=== PATIENT | male | born 1955 | race Caucasian/White ===

== ENCOUNTER 2019-03-06 09:55 | Inpatient (IN) ==
[2019-03-06 10:34] LABS: Basophils % 0.3 %; Eosinophils # 0.1 K/mcL (0.0-0.6); Eosinophils % 0.5 %; Hematocrit 42.5 % (37.5-50.1); Hemoglobin 13.8 g/dL (12.9-16.9); Immature Granulocytes % 0.4 % (0-4); Lymphocytes # 1.1 K/mcL (0.6-4.6); Lymphocytes % 8.3 %; Mean Corpuscular HGB Conc 32.5 g/dL (31.6-35.5); Mean Corpuscular Hemoglobin 30.1 pg (28.0-33.3); Mean Corpuscular Volume 92.6 fL (83.0-100.0); Mean Platelet Volume 9.3 fL (9.4-12.4); Monocytes # 1.3 K/mcL (0.0-1.3); Monocytes % 9.7 %; Neutrophils # 10.9 K/mcL (1.6-8.9); Platelet Count 205 K/mcL (140-400); Red Blood Count 4.59 M/mcL (4.19-5.50); Segmented Neutrophils % 80.8 %
[2019-03-06 10:56] LABS: BUN/Creatinine Ratio 12 (6-26); Blood Urea Nitrogen 13 mg/dL (8-23); Calcium 9.2 mg/dL (8.6-10.3); Carbon Dioxide 30 mEq/L (23-29); Chloride 100 mEq/L (98-107); Glucose 125 mg/dL (70-105); Osmolality,Calculated 290 (280-300); Sodium 139 mEq/L (136-145); eGFR For Non-African Americans > 60 (> 60)
[2019-03-06 10:57] LABS: Troponin I < 0.03 ng/mL (< 0.04)
[2019-03-06 11:06] LABS: VBG HCO3 31 mEq/L (21-27); VBG PCO2 57 mmHg (41-51); VBG PH 7.35 pH Units (7.32-7.42); VBG PO2 96 mmHg (25-50)
[2019-03-06] MEDS ORDERED: methylPREDNISolone 125 MG/2 ML VIAL IVP ONE (11:25)
[2019-03-06] MEDS ORDERED: Ipratropium/Albuterol Neb 3 ML IH ONE (11:25)
[2019-03-06] MEDS ORDERED: Azithromycin 500 MG in D5% in Water 250 ML IVPB ONE (11:38)
[2019-03-06] MEDS ORDERED: Naloxone 0.4 MG/ML INJ IVP PRN (12:09)
--- NOTE | 2019-03-06 12:29 | Emergency Department Note ---
Disposition Clinical Impression: Acute exacerbation of chronic obstructive airways disease Disposition: Admitted As Inpatient Condition: Good Referrals: Quentin Rosen MD [Primary Care Provider] - Time of Disposition: 12:00 General Adult HPI - General Chief complaint: ED Shortness of Breath/Dyspnea Stated complaint: KELLY Source: patient Limitations: no limitations Nursing Notes Reviewed: Yes Vital Signs Reviewed: Yes - History of Present Illness HPI Narrative: 63-year-old gentleman with history of COPD and tobacco abuse presents for chief complaint of shortness of breath as in progressive over the last 4 or 5 days. He notes that his doctor started him on Zyrtec and Flonase a few days ago and recommended that he start Spiriva, he was not able to fill the Spiriva yet. His cough has been productive of yellowish and green sputum. He denies any fever or chills, nausea or vomiting, headache or confusion, chest pain. Symptoms are constant and progressive and worsen with exertion. He is not normally on oxygen at home except at night, but is using oxygen today due to his dyspnea. No GI or symptoms, rashes or edema. No recent travel, surgery, immobilization. No recent antibiotics or steroids. Pain Scale: 9 - Related Data Home Medications Medication Instructions Recorded Confirmed Albuterol Sulfate [Albuterol 2 puff IH Q4HR PRN 09/21/15 05/07/16 Inhaler] Alprazolam [Xanax] 1 mg PO QID 09/21/15 05/07/16 Atorvastatin Calcium [Lipitor] 80 mg PO DAILY 09/21/15 05/07/16 Calcium Carbonate/Vitamin D3 1 tab PO DAILY 09/21/15 05/07/16 [Calcium 500-Vit D3 400 Tablet] Furosemide [Lasix] 40 mg PO DAILY 09/21/15 05/07/16 GlipiZIDE XL (24 HR) [Glucotrol XL] 5 mg PO DAILY 09/21/15 05/07/16 Guaifenesin [Mucinex] 600 mg PO BID 09/21/15 05/07/16 Ipratropium/Albuterol Neb [Duoneb] 3 ml IH Q6HR 09/21/15 05/07/16 Losartan [Cozaar] 50 mg PO DAILY 09/21/15 05/07/16 Multivitamin/Ferrous Sulfate 1 tab PO DAILY 09/21/15 05/07/16 [One-Daily Idizt-Vwm-Plqo Tab] [place]-3S/Dha/Epa/Fish Oil [Fish 1,000 mg PO DAILY 09/21/15 05/07/16 Oil 1,200 mg Softgel] Pantoprazole Sodium [Protonix] 40 mg PO DAILY 09/21/15 05/07/16 Potassium Chloride [Klor-Con 10 meq PO DAILY 09/21/15 05/07/16 Sprinkle] Promethazine [Phenergan] 25 mg PO Q6HR PRN 09/21/15 05/07/16 Spironolactone [Aldactone] 25 mg PO BID 09/21/15 05/07/16 Tizanidine [Zanaflex] 4 mg PO BID 09/21/15 05/07/16 buPROPion HCl [Zyban] 150 mg PO BID 09/21/15 05/07/16 Docusate Sodium [Colace] 100 mg PO BID PRN 01/02/16 05/07/16 Oxygen 2 l NS HS PRN 01/02/16 05/07/16 Aspirin Enteric Coated [Aspirin EC] 81 mg PO DAILY 05/07/16 05/07/16 Beta-Carotene(A)-Vits C,E/Mins 1 cap PO DAILY 05/07/16 05/07/16 [Antioxidant Softgel] Colestipol HCl [Colestid] 2 gm PO DAILY 05/07/16 05/07/16 EPINEPHrine [Epipen] 0.3 mg IJ ONCE PRN 05/07/16 05/07/16 Lidocaine OINT 1 appl TP AD 05/07/16 05/07/16 Metoprolol XL (24 HR) Succ [Toprol 25 mg PO DAILY 05/07/16 05/07/16 XL] Mirtazapine [Remeron] 30 mg PO QPM 05/07/16 05/07/16 OxyCODONE/APAP 7.5/325 [Percocet 2 tab PO Q4HR PRN 05/07/16 05/07/16 7.5/325 MG] Previous Rx's Medication Instructions Recorded Doxycycline 100 mg PO BID #60 capsule 01/04/16 Nystatin POWDER [Nystop] 1 appl TP BID #30 gm 02/12/19 Allergies Allergy/AdvReac Type Severity Reaction Status Date / Time AMBIKA Inhibitors Allergy See Verified 07/12/15 08:01 Comments acetaminophen [From Vicodin] Allergy Itching Verified 09/26/15 07:26 codeine Allergy Hives Verified 07/12/15 07:46 Diclofenac Allergy Itching Verified 09/26/15 07:26 hydrocodone [From Vicodin] Allergy Itching Verified 07/12/15 08:01 misoprostol Allergy See Verified 07/12/15 08:01 Comments ofloxacin Allergy REDNESS Verified 09/26/15 07:26 SWELLING Penicillins Allergy SWELLING Verified 09/26/15 07:26 Quinolones Allergy See Verified 07/12/15 08:01 Comments Sulfa (Sulfonamide Allergy Itching Verified 07/12/15 07:46 Antibiotics) trimethoprim Allergy See Verified 07/12/15 08:01 Comments metronidazole [From Flagyl] AdvReac burning Verified 09/26/15 07:26 sensation via iv All systems ED: reviewed and negative except as stated. Past Medical History - Past Medical History Attestation: Yes The following information was validated with the patient. Source: nursing notes reviewed Medical history: Reports: aortic aneurysm, arthritis, CHF, COPD, coronary artery disease, diabetes, GERD, hepatitis, hyperlipidemia, hypertension, kidney stones, renal disease, other Surgical history: Reports: cholecystectomy, orthopedic, other Psychiatric history: Reports: anxiety - Social History Smoking Status: Current every day smoker Smokeless Tobacco Status: No Alcohol use: Reports: none Drug use: Reports: none Physical Exam - General Limitations: no limitations General appearance: alert, in no apparent distress - Head Head exam: atraumatic, normocephalic - Eye Eye exam: Present: normal appearance, PERRL, EOMI - ENT ENT exam: normal exam, normal oropharynx, mucous membranes moist - Neck Neck exam: Present: normal inspection, full ROM, trachea midline - Chest Chest inspection: Present: normal inspection, symmetric chest wall rise - Respiratory Respiratory exam: Present: wheezes, other (Diminished diffusely.) - Cardiovascular Cardiovascular exam: Present: regular rate, normal rhythm, normal heart sounds - Abdominal Exam Abdominal exam: Present: soft, Non-Tender. Absent: tenderness, distention, guarding, rebound, rigidity - Extremities Exam Extremities exam: Present: normal inspection. Absent: pedal edema - Back Exam Back exam: Present: normal inspection - Neurological Exam Neurological exam: Present: alert, oriented X3 - Psychiatric Psychiatric exam: Present: normal affect, normal mood - Skin Skin exam: Present: warm, dry Course Course Narrative: Patient with some wheezing and tight lungs on arrival. He has productive cough on my assessment. No pneumonia on chest x-ray. Minimal CO2 retention on VBG. He is not acidotic. He is requiring 3 L of oxygen by nasal cannula. He is feeling a little better after DuoNeb treatments in the emergency department. He was also given Solu-Medrol and azithromycin. Patient admitted for further evaluation and management of his COPD flare. Vital Signs Temperature 98.8 F 03/06/19 09:57 Pulse Rate 103 03/06/19 09:57 Respiratory Rate 22 03/06/19 09:57 Blood Pressure 162/69 03/06/19 09:57 O2 Sat by Pulse Oximetry 87 03/06/19 09:57 Temperature 98.8 F 03/06/19 09:57 Pulse Rate 79 03/06/19 12:18 Respiratory Rate 18 03/06/19 12:18 Blood Pressure 135/59 03/06/19 12:18 O2 Sat by Pulse Oximetry 92 03/06/19 12:18 Oxygen Delivery Oxygen Delivery Nasal Cannula Medical Decision Making - Lab Data Result diagrams: 03/06/19 10:19 03/06/19 10:19 Lab Results 03/06/19 03/06/19 03/06/19 Range/Units 10:19 10:19 10:19 WBC 13.4 H (4.3-11.1) K/mcL RBC 4.59 (4.19-5.50) M/mcL Hgb 13.8 (12.9-16.9) g/dL Hct 42.5 (37.5-50.1) % MCV 92.6 (83.0-100.0) fL MCH 30.1 (28.0-33.3) pg MCHC 32.5 (31.6-35.5) g/dL RDW 12.0 (11.5-14.5) % Plt Count 205 (140-400) K/mcL MPV 9.3 L (9.4-12.4) fL Immature Gran % 0.4 (0-4) % Seg Neutrophils % 80.8 % Lymphocytes % 8.3 % Monocytes % 9.7 % Eosinophils % 0.5 % Basophils % 0.3 % Neutrophils # 10.9 H (1.6-8.9) K/mcL Lymphocytes # 1.1 (0.6-4.6) K/mcL Monocytes # 1.3 (0.0-1.3) K/mcL Eosinophils # 0.1 (0.0-0.6) K/mcL Basophils # 0.0 (0.0-0.2) K/mcL VBG pH (7.32-7.42) pH Units VBG pCO2 (41-51) mmHg VBG pO2 (25-50) mmHg VBG HCO3 (21-27) mEq/L Sodium 139 (136-145) mEq/L Potassium 4.0 (3.5-5.1) mEq/L Chloride 100 (98-107) mEq/L Carbon Dioxide 30 H (23-29) mEq/L BUN 13 (8-23) mg/dL Creatinine 1.06 (0.70-1.30) mg/dL Est GFR ( Amer) > 60 (> 60) Est GFR (Non-Af Amer) > 60 (> 60) BUN/Creatinine Ratio 12 (6-26) Glucose 125 H (70-105) mg/dL Calculated Osmolality 290 (280-300) Lactic Acid 0.9 (0.5-2.2) mmol/L Calcium 9.2 (8.6-10.3) mg/dL Troponin I < 0.03 (< 0.04) ng/mL B-Natriuretic Peptide (Less than 100) pg/mL 03/06/19 03/06/19 Range/Units 10:19 11:03 WBC (4.3-11.1) K/mcL RBC (4.19-5.50) M/mcL Hgb (12.9-16.9) g/dL Hct (37.5-50.1) % MCV (83.0-100.0) fL MCH (28.0-33.3) pg MCHC (31.6-35.5) g/dL RDW (11.5-14.5) % Plt Count (140-400) K/mcL MPV (9.4-12.4) fL Immature Gran % (0-4) % Seg Neutrophils % % Lymphocytes % % Monocytes % % Eosinophils % % Basophils % % Neutrophils # (1.6-8.9) K/mcL Lymphocytes # (0.6-4.6) K/mcL Monocytes # (0.0-1.3) K/mcL Eosinophils # (0.0-0.6) K/mcL Basophils # (0.0-0.2) K/mcL VBG pH 7.35 (7.32-7.42) pH Units VBG pCO2 57 H (41-51) mmHg VBG pO2 96 H (25-50) mmHg VBG HCO3 31 H (21-27) mEq/L Sodium (136-145) mEq/L Potassium (3.5-5.1) mEq/L Chloride (98-107) mEq/L Carbon Dioxide (23-29) mEq/L BUN (8-23) mg/dL Creatinine (0.70-1.30) mg/dL Est GFR ( Amer) (> 60) Est GFR (Non-Af Amer) (> 60) BUN/Creatinine Ratio (6-26) Glucose (70-105) mg/dL Calculated Osmolality (280-300) Lactic Acid (0.5-2.2) mmol/L Calcium (8.6-10.3) mg/dL Troponin I (< 0.04) ng/mL B-Natriuretic Peptide 47 (Less than 100) pg/mL
--- NOTE | 2019-03-06 12:30 | Internal Med History&Physical ---
Date of Encounter: 03/06/19 Time of Encounter: 12:27 Internal Medicine - H&P: HPI Chief complaint: SOB Admitted From: Home Plans for Post Hospital Care: Home History of present illness: Mr. Winchester is a 63 year old male with history COPD on home oxygen, obesity on CPAP and CHF presented to [facility] with complaint of SOB.as per patient his SOB started about one week ago and is progressively worsening. SOB is present both at rest and on ambulation. Associated with wheezing, and cough with productive yellow sputum he makes about half a cup a day sputum, denies blood. He denies leg swelling, PND or orthopnea. He is been compliant with his CPAP. He has used his home nebulizers without relief. Ambulation aggravates his symptoms and rest alleviates them somewhat. He saw his primary care physician for similar symptoms and was prescribed 2 new inhalers however when he went to go fill it at the pharmacy they did not have the inhalers. He also endorses history of heart failure and is on multiple medications however denies any other cardiac history, has never had any stents placed. He is up-to-date with his vaccinations, denies sick contacts or recent antibiotic use. He denies fever, chills, nausea, vomiting, diarrhea, chest pain, palpitations, headache, syncope, or recent falls while in [facility] he was give steroids nadnebs for COPD exacerbation with improvement and was endorsed for admission has take n all Am medications take oxycodone 7.5 mg 2 tablets Q4H for chronic pain Past Med Surg Social Fam HX - Past Medical History Medical history: aortic aneurysm, arthritis, CHF, COPD, coronary artery disease, diabetes, GERD, hepatitis, hyperlipidemia, hypertension, kidney stones, renal disease, other Additional medical history: AAA. renal artery stent Psychiatric history: anxiety - Past Surgical History Surgical History: cholecystectomy, orthopedic, other Additional surgical history: renal artery stent. AAA - Social History Smoking Status: Current every day smoker Smokeless Tobacco Status: No Alcohol use: none Drug use: none - Family History Mother Living Status: Hx Family Cardiac Disorders: Yes Hx Family Respiratory Disorders: Yes Hx Family Endocrine Disorder: Yes Father Living Status: Hx Family Cardiac Disorders: Yes Hx Family Respiratory Disorders: Yes Hx Family Endocrine Disorder: Yes Brother Living Status: Hx Family Cardiac Disorders: Yes Internal Medicine - H&P: Meds Albuterol Sulfate [Albuterol Inhaler] 2 puff IH Q4HR PRN 09/21/15 [History] Alprazolam [Xanax] 1 mg PO QID 09/21/15 [History] Atorvastatin Calcium [Lipitor] 80 mg PO DAILY 09/21/15 [History] Calcium Carbonate/Vitamin D3 [Calcium 500-Vit D3 400 Tablet] 1 tab PO DAILY 09/21/15 [History] Furosemide [Lasix] 40 mg PO DAILY 09/21/15 [History] GlipiZIDE XL (24 HR) [Glucotrol XL] 5 mg PO DAILY 09/21/15 [History] Guaifenesin [Mucinex] 600 mg PO BID 09/21/15 [History] Ipratropium/Albuterol Neb [Duoneb] 3 ml IH Q6HR 09/21/15 [History] Losartan [Cozaar] 50 mg PO DAILY 09/21/15 [History] Multivitamin/Ferrous Sulfate [One-Daily Hxpsr-Hnj-Zvpx Tab] 1 tab PO DAILY 09/21/15 [History] [place]-3S/Dha/Epa/Fish Oil [Fish Oil 1,200 mg Softgel] 1,000 mg PO DAILY 09/21/15 [History] Pantoprazole Sodium [Protonix] 40 mg PO DAILY 09/21/15 [History] Potassium Chloride [Klor-Con Sprinkle] 10 meq PO DAILY 09/21/15 [History] Promethazine [Phenergan] 25 mg PO Q6HR PRN 09/21/15 [History] Spironolactone [Aldactone] 25 mg PO BID 09/21/15 [History] Tizanidine [Zanaflex] 4 mg PO BID 09/21/15 [History] buPROPion HCl [Zyban] 150 mg PO BID 09/21/15 [History] Docusate Sodium [Colace] 100 mg PO BID PRN 01/02/16 [History] Oxygen 2 l NS HS PRN 01/02/16 [History] Doxycycline 100 mg PO BID #60 capsule 01/04/16 [Rx] Aspirin Enteric Coated [Aspirin EC] 81 mg PO DAILY 05/07/16 [History] Beta-Carotene(A)-Vits C,E/Mins [Antioxidant Softgel] 1 cap PO DAILY 05/07/16 [History] Colestipol HCl [Colestid] 2 gm PO DAILY 05/07/16 [History] EPINEPHrine [Epipen] 0.3 mg IJ ONCE PRN 05/07/16 [History] Lidocaine OINT 1 appl TP AD 05/07/16 [History] Metoprolol XL (24 HR) Succ [Toprol XL] 25 mg PO DAILY 05/07/16 [History] Mirtazapine [Remeron] 30 mg PO QPM 05/07/16 [History] OxyCODONE/APAP 7.5/325 [Percocet 7.5/325 MG] 2 tab PO Q4HR PRN 05/07/16 [History] Nystatin POWDER [Nystop] 1 appl TP BID #30 gm 02/12/19 [Rx] Allergy/AdvReac Type Severity Reaction Status Date / Time AMBIKA Inhibitors Allergy See Verified 07/12/15 08:01 Comments acetaminophen [From Vicodin] Allergy Itching Verified 09/26/15 07:26 codeine Allergy Hives Verified 07/12/15 07:46 Diclofenac Allergy Itching Verified 09/26/15 07:26 hydrocodone [From Vicodin] Allergy Itching Verified 07/12/15 08:01 misoprostol Allergy See Verified 07/12/15 08:01 Comments ofloxacin Allergy REDNESS Verified 09/26/15 07:26 SWELLING Penicillins Allergy SWELLING Verified 09/26/15 07:26 Quinolones Allergy See Verified 07/12/15 08:01 Comments Sulfa (Sulfonamide Allergy Itching Verified 07/12/15 07:46 Antibiotics) trimethoprim Allergy See Verified 07/12/15 08:01 Comments metronidazole [From Flagyl] AdvReac burning Verified 09/26/15 07:26 sensation via iv All Systems PM: A 10-system review of systems was performed and is negative for pertinent findings except as documented above in the HPI. - Constitutional Vitals: Temp Pulse Resp BP Pulse Ox 98.8 F 79 18 135/59 92 03/06/19 09:57 03/06/19 12:18 03/06/19 12:18 03/06/19 12:18 03/06/19 12:18 Exam: General: Patient is alert, oriented, no acute distress, obese Head: atraumatic, normocephalic, Eye: normal appearance, PERRL, no scleral icterus, no conjunctival injection ENT: mucous membranes moist, normal external ear exam Neck: normal inspection, trachea midline, full ROM, no carotid bruits Chest: normal inspection, symmetric chest rise Respiratory: Distant breath sounds secondary to body habitus, decreased breath sounds bilaterally, bilateral wheezing in the anterior and posterior chest, occasional crackles in the posterior chest. Cardiovascular: Distant Heart sounds secondary to body habitus, Regular rate and rhythm. s1 and s2 No clicks, rubs, gallops, or murmors. Abdomen: Bowel sounds present normoactive x-4 quadrants. Abdomen is soft, nondistended. no Epigastric tenderness. No guarding or rebound. No organomegaly noted, obese musculoskeletal: Spontaneously moving all extremities. no edema, no calf tenderness Skin: warm, dry, intact. Neuro: Alert and oriented x3 no focal deficit. Psych: Patient's affect is normal Internal Med - H&P Results - Labs CBC & Chem 7: 03/06/19 10:19 03/06/19 10:19 Labs: Short CBC 03/06/19 Range/Units 10:19 WBC 13.4 H (4.3-11.1) K/mcL Hgb 13.8 (12.9-16.9) g/dL Hct 42.5 (37.5-50.1) % Plt Count 205 (140-400) K/mcL Neutrophils # 10.9 H (1.6-8.9) K/mcL BMP 03/06/19 10:19 Sodium 139 Potassium 4.0 Chloride 100 Carbon Dioxide 30 H BUN 13 Creatinine 1.06 Glucose 125 H Calcium 9.2 Cardiac Enzymes 03/06/19 Range/Units 10:19 Troponin I < 0.03 (< 0.04) ng/mL - ABG Interpretation ABG results: 03/06/19 11:03 VBG pH 7.35 VBG pCO2 57 H VBG pO2 96 H VBG HCO3 31 H - EKG Data -: EKG Interpreted by Myself (NSR, nonspecific St-t changes ) - EKG Data Prior EKG available for review: no - Impressions ITS Impressions Chest X-Ray 03/06/19 10:14 IMPRESSION: No acute abnormality. D/ / Dean Kelsey MD / Dean Kelsey MD Interpreting Provider: Dean Kelsey MD - Assessment and Plan (1) Acute exacerbation of chronic obstructive pulmonary disease (COPD) Current Visit: Yes Status: Acute Assessment and plan: received one dose of solumedrol 125 mg in the ED continue 40 mg Q8H urine antigens ceftriaxone and azithromycin sputum cx blood cx in process continue with CPAP home settings bipap PRN if he develops respiratory distress oxygen via nasal cannula to keep sats >90%- avoid over oxygenation symbicort PFTS in 12/2017-Spirometry shows severe airway obstructive pattern (2) Congestive heart failure (CHF) Current Visit: Yes Status: Acute Assessment and plan: not in exacerbation continue with home medications if not CI Qualifiers: Heart failure type: unspecified Heart failure chronicity: unspecified Qualified Code(s): I50.9 - Heart failure, unspecified (3) Obesity (BMI 35.0-39.9 without comorbidity) Current Visit: Yes Status: Acute Assessment and plan: nutrition consult was counseled CPAP at night- home settings (4) Current every day smoker Current Visit: Yes Status: Acute Assessment and plan: was counseled (5) DVT prophylaxis Current Visit: No Status: Acute Assessment and plan: heparin sc - Time Spent With Patient Total time spent is greater than 50% in coordination of care (as documented) at patient's floor/unit and/or counseling patient:
[2019-03-06] MEDS ORDERED: cefTRIAXone 2,000 MG in Water for inj. (sterile) 20 ML 20 ML IVP SCH (13:00)
[2019-03-06] MEDS ORDERED: *HR* OxyCODONE/APAP 7.5/325 TABLET PO PRN (13:08)
[2019-03-06] MEDS: Levofloxacin 750 MG/150 ML 750 MG/150 ML BAG IVPB SCH (14:33)
[2019-03-06] MEDS: *HR* Heparin 5,000 UNIT/ML VIAL SQ SCH ×2 (14:33→20:15)
[2019-03-06] MEDS: Ipratropium/Albuterol Neb 3 ML IH SCH ×4 (15:11→23:56)
[2019-03-06] MEDS ORDERED: Ondansetron 4 MG/2 ML VIAL IVP PRN (16:14)
[2019-03-06] MEDS ORDERED: D5% in Water 1,000 ML IVC PRN (18:16)
[2019-03-06] MEDS ORDERED: Dextrose Gel 15 GM/37.5 ML TUBE PO PRN ×2 (18:16)
[2019-03-06] MEDS ORDERED: *HR* Dextrose 50 % in Water (Syg) 50 ML SYRINGE IVP PRN (18:16)
[2019-03-06] MEDS: Budesonide/Formoterol 80/4.5 MDI IH SCH (19:37)
[2019-03-06] MEDS: Spironolactone 25 MG TABLET PO SCH (20:16)
[2019-03-06] MEDS: *HR* OxyCODONE/APAP 7.5/325 TABLET PO PRN (21:14)
[2019-03-06] MEDS: Insulin LISPRO 300 UNITS/3 ML VIAL SQ SCH (21:58)
[2019-03-06] MEDS: MethylPREDNISolone 40 MG/ML VIAL IVP SCH (23:11)
[2019-03-07 01:41] LABS: Basophils % 0.1 %; Hematocrit 39.9 % (37.5-50.1); Hemoglobin 12.9 g/dL (12.9-16.9); Immature Granulocytes % 0.8 % (0-4); Lymphocytes # 0.6 K/mcL (0.6-4.6); Lymphocytes % 5.8 %; Mean Corpuscular HGB Conc 32.3 g/dL (31.6-35.5); Mean Corpuscular Volume 92.8 fL (83.0-100.0); Mean Platelet Volume 9.7 fL (9.4-12.4); Monocytes # 0.6 K/mcL (0.0-1.3); Monocytes % 5.2 %; Neutrophils # 9.5 K/mcL (1.6-8.9); Platelet Count 201 K/mcL (140-400); Red Cell Distribution Width 12.1 % (11.5-14.5); Segmented Neutrophils % 88.1 %
[2019-03-07 02:01] LABS: BUN/Creatinine Ratio 13 (6-26); Blood Urea Nitrogen 15 mg/dL (8-23); Calcium 8.9 mg/dL (8.6-10.3); Carbon Dioxide 26 mEq/L (23-29); Chloride 99 mEq/L (98-107); Glucose 220 mg/dL (70-105); Magnesium 1.5 mg/dL (1.6-2.6); Osmolality,Calculated 292 (280-300); Phosphorous 2.6 mg/dL (2.7-4.5); Potassium 4.1 mEq/L (3.5-5.1); Sodium 137 mEq/L (136-145); eGFR For Non-African Americans > 60 (> 60)
[2019-03-07] MEDS: Ipratropium/Albuterol Neb 3 ML IH SCH ×5 (03:35→19:47)
[2019-03-07] MEDS: *HR* OxyCODONE/APAP 7.5/325 TABLET PO PRN ×4 (03:48→23:19)
[2019-03-07] MEDS: *HR* Heparin 5,000 UNIT/ML VIAL SQ SCH ×3 (05:51→20:38)
[2019-03-07] MEDS: Budesonide/Formoterol 80/4.5 MDI IH SCH ×2 (07:30→19:47)
[2019-03-07] MEDS: Levofloxacin 750 MG/150 ML 750 MG/150 ML BAG IVPB SCH (07:56)
[2019-03-07] MEDS: Spironolactone 25 MG TABLET PO SCH ×2 (07:57→20:37)
[2019-03-07] MEDS: Furosemide 40 MG TABLET PO SCH (07:57)
[2019-03-07] MEDS: Metoprolol XL (24 HR) Succ 25 MG TAB.ER.24H PO SCH (07:57)
[2019-03-07] MEDS: MethylPREDNISolone 40 MG/ML VIAL IVP SCH ×3 (07:57→23:18)
[2019-03-07] MEDS: Aspirin Enteric Coated 81 MG Tablet PO SCH (07:57)
[2019-03-07] MEDS: Insulin LISPRO 300 UNITS/3 ML VIAL SQ SCH ×4 (07:58→20:45)
[2019-03-07] MEDS ORDERED: Azithromycin 500 MG in D5% in Water 250 ML IVPB SCH (09:00)
[2019-03-07 09:49] LABS: Estimated Average Glucose 126 mg/dl
[2019-03-07 12:51] LABS: Adenovirus Not Detected (Not Detect); Bordetella Pertussis Not Detected (Not Detect); Chlamydophila pneumoniae Not Detected (Not Detect); Coronavirus 229E Not Detected (Not Detect); Coronavirus HKU1 Not Detected (Not Detect); Coronavirus NL63 Not Detected (Not Detect); Coronavirus OC43 Not Detected (Not Detect); Human Metapneumovirus Not Detected (Not Detect); Human Rhinovirus/Enterovirus Not Detected (Not Detect); Influenza A Subtype 2009 H1 Not Detected (Not Detect); Influenza A Untypeable Not Detected (Not Detect); Influenza B Not Detected (Not Detect); Mycoplasma pneumoniae Not Detected (Not Detect); Parainfluenza Virus 1 Not Detected (Not Detect); Parainfluenza Virus 2 Not Detected (Not Detect); Parainfluenza Virus 3 Not Detected (Not Detect); Parainfluenza Virus 4 Not Detected (Not Detect); Respiratory Syncytial Virus Not Detected (Not Detect)
--- NOTE | 2019-03-07 13:27 | Internal Med Progress Note ---
Hospitalist Progress Note - Encounter Date of Encounter: 03/07/19 Time of Encounter: 10:00 - Subjective Interval History: Mr. Winchester is a 63 year old male with history COPD on home oxygen, obesity, MARCIA on CPAP and chronic diastolic CHF pt presented to the ER with complaint of progressively worsening SOB and cough with expectoration from last 2 days.. As per patient his SOB started about one week ago and is progressively worsening since last 2 days. He denies leg swelling, PND or orthopnea. Patient was admitted in the hospital and placed him on high-dose IV steroids and empirical abx. Pt stated he is feeling little better today. However he stil have moderate SOB and LOPEZ. - Exam Vitals: Temp Pulse Resp BP Pulse Ox 98.5 F 82 16 160/83 93 03/07/19 11:25 03/07/19 11:25 03/07/19 11:25 03/07/19 11:25 03/07/19 11:25 Exam: Gen: Alert, awake, Oriented to time,place and person Chest: Diminished breath sounds B/L, Moderate to severe wheezing, No crackles, No rales Heart: S1S2+ RRR No murmurs Abd: Soft, NT, BS +, No organomegaly Ext: trace edema, pulses are palpable, No calf tenderness Neuro : Benign findings Skin: No rash. - Assessment and Plan (1) Acute exacerbation of chronic obstructive pulmonary disease (COPD) Current Visit: Yes Status: Acute Assessment and Plan: Cont IV systemic steroids continue frequent bronchodilator therapy reviewed chest x-ray no consolidation/infiltrates noticed his symptoms are concerning for acute purulent bronchitis continue empirical antibiotic levofloxacin continue Symbicort continue oxygen 2 L patient supposedly have to use oxygen continuously at home but he is using as needed only (2) Acute bronchitis Current Visit: Yes Status: Acute Assessment and Plan: Most likely bacterial continue empirical antibiotic levofloxacin (3) Chronic respiratory failure with hypoxia Current Visit: Yes Status: Chronic (4) Obesity (BMI 35.0-39.9 without comorbidity) Current Visit: Yes Status: Acute Assessment and Plan: nutrition consult was counseled CPAP at night- home settings (5) Current every day smoker Current Visit: Yes Status: Acute Assessment and Plan: Counseled to quit smoking placed on nicotine patch (6) Congestive heart failure (CHF) Current Visit: Yes Status: Acute Assessment and Plan: not in exacerbation suspecting most likely chronic diastolic CHF no echocardiograms to review continue with home medication (7) DVT prophylaxis Current Visit: No Status: Acute Assessment and Plan: heparin sc - Time Spent with Patient Total time spent is greater than 50% in coordination of care (as documented) at patient's floor/unit and/or counseling patient: Internal Medicine: Result - Labs CBC & Chem 7: 03/07/19 01:22 03/07/19 01:22 Labs: Short CBC 03/07/19 Range/Units 01:22 WBC 10.8 (4.3-11.1) K/mcL Hgb 12.9 (12.9-16.9) g/dL Hct 39.9 (37.5-50.1) % Plt Count 201 (140-400) K/mcL Neutrophils # 9.5 H (1.6-8.9) K/mcL BMP 03/07/19 01:22 Sodium 137 Potassium 4.1 Chloride 99 Carbon Dioxide 26 BUN 15 Creatinine 1.17 Glucose 220 H Calcium 8.9 Consult Discharge Plan - Plan Referrals: Quentin Rosen MD [Primary Care Provider] - (Appointment has been requested. ) (2) Acute bronchitis Qualifiers: Bronchitis organism: unspecified organism Qualified Code(s): J20.9 - Acute bronchitis, unspecified (6) Congestive heart failure (CHF) Qualifiers: Heart failure type: unspecified Heart failure chronicity: unspecified Qualified Code(s): I50.9 - Heart failure, unspecified
[2019-03-08] MEDS: Ipratropium/Albuterol Neb 3 ML IH SCH ×7 (00:13→23:43)
[2019-03-08] MEDS: *HR* Heparin 5,000 UNIT/ML VIAL SQ SCH ×3 (04:42→20:21)
[2019-03-08] MEDS: *HR* OxyCODONE/APAP 7.5/325 TABLET PO PRN ×4 (05:10→23:08)
[2019-03-08] MEDS: Budesonide/Formoterol 80/4.5 MDI IH SCH ×2 (07:36→19:47)
[2019-03-08] MEDS: Furosemide 40 MG TABLET PO SCH (08:42)
[2019-03-08] MEDS: Spironolactone 25 MG TABLET PO SCH ×2 (08:42→20:21)
[2019-03-08] MEDS: MethylPREDNISolone 40 MG/ML VIAL IVP SCH ×2 (08:42→17:22)
[2019-03-08] MEDS: Insulin LISPRO 300 UNITS/3 ML VIAL SQ SCH ×4 (08:42→20:26)
[2019-03-08] MEDS: Aspirin Enteric Coated 81 MG Tablet PO SCH (08:42)
[2019-03-08] MEDS: Metoprolol XL (24 HR) Succ 25 MG TAB.ER.24H PO SCH (08:42)
[2019-03-08] MEDS: Levofloxacin 750 MG/150 ML 750 MG/150 ML BAG IVPB SCH (08:43)
--- NOTE | 2019-03-08 10:35 | Internal Med Progress Note ---
Hospitalist Progress Note - Encounter Date of Encounter: 03/08/19 Time of Encounter: 10:20 - Subjective Interval History: Mr. Winchester is a 63 year old male with history COPD on home oxygen, obesity, MARCIA on CPAP and chronic diastolic CHF pt presented to the ER with complaint of progressively worsening SOB and cough with expectoration from last 2 days.. As per patient his SOB started about one week ago and is progressively worsening since last 2 days. He denies leg swelling, PND or orthopnea. Patient was admitted in the hospital and placed him on high-dose IV steroids and empirical abx. Pt stated he is feeling little better today. However he still have moderate to severe SOB and LOPEZ. Does not feel like back to baseline yet. Still has cough with greenish expectoration - Exam Vitals: Temp Pulse Resp BP Pulse Ox 97.4 F L 67 16 147/83 93 03/08/19 04:22 03/08/19 07:06 03/08/19 07:36 03/08/19 07:06 03/08/19 07:36 Exam: Gen: Alert, awake, Oriented to time,place and person Chest: Diminished breath sounds B/L, Moderate to severe diffuse wheezing, No crackles, No rales Heart: S1S2+ RRR No murmurs Abd: Soft, NT, BS +, No organomegaly Ext: trace edema, pulses are palpable, No calf tenderness Neuro : Benign findings Skin: No rash. - Assessment and Plan (1) Acute exacerbation of chronic obstructive pulmonary disease (COPD) Current Visit: Yes Status: Acute Assessment and Plan: Cont IV systemic steroids continue frequent Bronchodilator Therapy reviewed chest x-ray no consolidation/infiltrates noticed continue empirical antibiotic levofloxacin continue Symbicort continue oxygen 3 L Patient does need to stay in the hospital more than 2 midnights due to his complex medical problems with severe COPD exacerbation needed high dose IV steroids and frequent Bronchodilator Therapy . So we will change him to full admission today. I did review my colleague Dr. Dye's H & P including HPI, PMH, PSH, FH, SH, and ROS no changes noticed (2) Acute bronchitis Current Visit: Yes Status: Acute Assessment and Plan: Most likely bacterial continue empirical antibiotic levofloxacin (3) Chronic respiratory failure with hypoxia Current Visit: Yes Status: Chronic Assessment and Plan: Patient stated he is using oxygen 2 - 3 L as needed at home however currently he required 3 lit oxygen continuously, otherwise his Spo2 dropped down to 86 % on RA (4) Obesity (BMI 35.0-39.9 without comorbidity) Current Visit: Yes Status: Acute Assessment and Plan: nutrition consult was counseled CPAP at night- home settings (5) Current every day smoker Current Visit: Yes Status: Acute Assessment and Plan: Counseled to quit smoking placed on nicotine patch (6) Congestive heart failure (CHF) Current Visit: Yes Status: Acute Assessment and Plan: not in exacerbation suspecting most likely chronic diastolic CHF no echocardiograms to review continue with home medication (7) DVT prophylaxis Current Visit: No Status: Acute Assessment and Plan: heparin sc - Time Spent with Patient Total time spent is greater than 50% in coordination of care (as documented) at patient's floor/unit and/or counseling patient: Internal Medicine: Result - Labs CBC & Chem 7: 03/07/19 01:22 03/07/19 01:22 Consult Discharge Plan - Plan Referrals: Quentin Rosen MD [Primary Care Provider] - 03/15/19 10:15 am () (2) Acute bronchitis Qualifiers: Bronchitis organism: unspecified organism Qualified Code(s): J20.9 - Acute bronchitis, unspecified (6) Congestive heart failure (CHF) Qualifiers: Heart failure type: unspecified Heart failure chronicity: unspecified Qualified Code(s): I50.9 - Heart failure, unspecified
[2019-03-09] MEDS: Ipratropium/Albuterol Neb 3 ML IH SCH ×3 (03:28→11:01)
[2019-03-09] MEDS: *HR* Heparin 5,000 UNIT/ML VIAL SQ SCH (05:33)
[2019-03-09] MEDS: *HR* OxyCODONE/APAP 7.5/325 TABLET PO PRN (05:33)
[2019-03-09] MEDS: MethylPREDNISolone 40 MG/ML VIAL IVP SCH (05:33)
[2019-03-09 07:14] VITALS: BP 148/76
[2019-03-09] MEDS: Budesonide/Formoterol 80/4.5 MDI IH SCH (07:48)
[2019-03-09] MEDS: Levofloxacin 750 MG/150 ML 750 MG/150 ML BAG IVPB SCH (09:01)
[2019-03-09] MEDS: Furosemide 40 MG TABLET PO SCH (09:02)
[2019-03-09] MEDS: Aspirin Enteric Coated 81 MG Tablet PO SCH (09:02)
[2019-03-09] MEDS: Spironolactone 25 MG TABLET PO SCH (09:02)
[2019-03-09] MEDS: Metoprolol XL (24 HR) Succ 25 MG TAB.ER.24H PO SCH (09:02)
[2019-03-09] MEDS: Insulin LISPRO 300 UNITS/3 ML VIAL SQ SCH (09:03)
--- NOTE | 2019-03-09 09:20 | Discharge Summary ---
- NOTES TO OUTPATIENT PROVIDER Notes to Outpatient Provider: f/u with PCP in one week. Please start using 3 lit O2 conitnuously. Orders not resulted at time of discharge: Pending orders 03/06/19 10:19 Culture,Blood [BC] Stat Date of Encounter: 03/09/19 Time of Encounter: 09:17 - Discharge Diagnosis (1) Acute exacerbation of chronic obstructive pulmonary disease (COPD) Priority: Primary Status: Acute (2) Acute bronchitis Priority: Primary Status: Acute Qualifiers: Bronchitis organism: unspecified organism Qualified Code(s): J20.9 - Acute bronchitis, unspecified (3) Chronic respiratory failure with hypoxia Priority: Secondary Status: Chronic (4) Obesity (BMI 35.0-39.9 without comorbidity) Priority: Secondary Status: Acute (5) Current every day smoker Priority: Secondary Status: Acute (6) Congestive heart failure (CHF) Priority: Secondary Status: Acute Qualifiers: Heart failure type: unspecified Heart failure chronicity: unspecified Qualified Code(s): I50.9 - Heart failure, unspecified (7) DVT prophylaxis Priority: Secondary Status: Acute Hospital course: Mr. Winchester is a 63 year old male with history COPD on home oxygen, obesity, MARCIA on CPAP and chronic diastolic CHF pt presented to the ER with complaint of progressively worsening SOB and cough with expectoration from last 2 days.. As per patient his SOB started about one week ago and is progressively worsening since last 2 days. He denies leg swelling, PND or orthopnea. Patient was admitted in the hospital and placed him on high-dose IV steroids and empirical abx. Patient stated he is using oxygen at nighttime only at home. However now he required 3 lit O2 continuously. His symptoms started improving slowly. Pt stated he is feeling better today. So will d/c him home in stable condition with tapering dose PO steroids and Abx. - Time Spent with Patient Total time spent providing and/or coordinating discharge services: - Discharge Medications Prescriptions: New Levofloxacin [Levaquin] 750 mg PO DAILY #3 tablet predniSONE [PredniSONE] 40 mg PO DAILY #10 tablet GuaiFENesin/Dextromethorphan [Robitussin/Dm] 10 ml PO Q6HR PRN #240 ml PRN Reason: Cough Continued Pantoprazole Sodium [Protonix] 40 mg PO DAILY Multivitamin/Ferrous Sulfate [One-Daily Ywfqb-Bbt-Ffcq Tab] 1 tab PO DAILY Guaifenesin [Mucinex] 600 mg PO Q12H PRN PRN Reason: CHEST CONGESTION Atorvastatin Calcium [Lipitor] 80 mg PO DAILY Lidocaine OINT 1 appl TP DAILY PRN PRN Reason: Pain EPINEPHrine [Epipen] 0.3 mg IJ ONCE PRN PRN Reason: Allergic Reaction OxyCODONE/APAP 7.5/325 [Percocet 7.5/325 MG] 2 tab PO Q6H PRN PRN Reason: Pain Colestipol HCl [Colestid] 1 gm PO DAILY BuPROPion SR (12 HR) [Wellbutrin SR] 150 mg PO BID Cetirizine HCl [24Hour Allergy] 10 mg PO DAILY Dicyclomine Hcl [Bentyl] 20 mg PO BID Fluticasone Propionate Nasal [Flonase] 1 spray NS DAILY Furosemide [Lasix] 40 mg PO BID GlipiZIDE [Glipizide Xl] 5 mg PO DAILY Losartan Potassium 100 mg PO DAILY Metoprolol Succinate [Toprol Xl] 50 mg PO DAILY Mirtazapine 45 mg PO HS Potassium Chloride [K-Tab ER] 10 meq PO DAILY Promethazine [Phenergan] 25 mg PO Q6H PRN PRN Reason: NAUSEA/VOMITING Spironolactone 25 mg PO BID Tiotropium Closplint [Spiriva Respimat] 2 puff IH DAILY Aspirin [Adult Aspirin Regimen] 81 mg PO DAILY Calcium Carbonate [Calcium] 500 mg PO DAILY metFORMIN [Glucophage] 500 mg PO BIDWM Semaglutide [Ozempic] 0.25 mg SQ SA Nystatin POWDER [Nystop] 1 appl TP BID PRN PRN Reason: REDNESS/ITCHING Albuterol Sulfate [Ventolin Hfa] 2 puff IH Q4H PRN PRN Reason: Shortness Of Breath Tizanidine HCl 4 mg PO BID PRN PRN Reason: Muscle Spasm Ipratropium/Albuterol Sulfate [Iprat-Albut 0.5-3(2.5) mg/3 ml] 3 ml IH QID PRN #60 ampul.neb PRN Reason: Shortness Of Breath Home Medications: Atorvastatin Calcium [Lipitor] 80 mg PO DAILY 09/21/15 [History] Guaifenesin [Mucinex] 600 mg PO Q12H PRN 09/21/15 [History] Multivitamin/Ferrous Sulfate [One-Daily Qrxgl-Rsz-Fghz Tab] 1 tab PO DAILY 09/21 [History] Pantoprazole Sodium [Protonix] 40 mg PO DAILY 09/21/15 [History] Colestipol HCl [Colestid] 1 gm PO DAILY 05/07/16 [History] EPINEPHrine [Epipen] 0.3 mg IJ ONCE PRN 05/07/16 [History] Lidocaine OINT 1 appl TP DAILY PRN 05/07/16 [History] OxyCODONE/APAP 7.5/325 [Percocet 7.5/325 MG] 2 tab PO Q6H PRN 05/07/16 [History] Albuterol Sulfate [Ventolin Hfa] 2 puff IH Q4H PRN 03/07/19 [History] Aspirin [Adult Aspirin Regimen] 81 mg PO DAILY 03/07/19 [History] BuPROPion SR (12 HR) [Wellbutrin SR] 150 mg PO BID 03/07/19 [History] Calcium Carbonate [Calcium] 500 mg PO DAILY 03/07/19 [History] Cetirizine HCl [24Hour Allergy] 10 mg PO DAILY 03/07/19 [History] Dicyclomine Hcl [Bentyl] 20 mg PO BID 03/07/19 [History] Fluticasone Propionate Nasal [Flonase] 1 spray NS DAILY 03/07/19 [History] Furosemide [Lasix] 40 mg PO BID 03/07/19 [History] GlipiZIDE [Glipizide Xl] 5 mg PO DAILY 03/07/19 [History] Losartan Potassium 100 mg PO DAILY 03/07/19 [History] Metoprolol Succinate [Toprol Xl] 50 mg PO DAILY 03/07/19 [History] Mirtazapine 45 mg PO HS 03/07/19 [History] Nystatin POWDER [Nystop] 1 appl TP BID PRN 03/07/19 [History] Potassium Chloride [K-Tab ER] 10 meq PO DAILY 03/07/19 [History] Promethazine [Phenergan] 25 mg PO Q6H PRN 03/07/19 [History] Semaglutide [Ozempic] 0.25 mg SQ SA 03/07/19 [History] Spironolactone 25 mg PO BID 03/07/19 [History] Tiotropium Closplint [Spiriva Respimat] 2 puff IH DAILY 03/07/19 [History] Tizanidine HCl 4 mg PO BID PRN 03/07/19 [History] metFORMIN [Glucophage] 500 mg PO BIDWM 03/07/19 [History] GuaiFENesin/Dextromethorphan [Robitussin/Dm] 10 ml PO Q6HR PRN #240 ml 03/09/19 [Rx] Ipratropium/Albuterol Sulfate [Iprat-Albut 0.5-3(2.5) mg/3 ml] 3 ml IH QID PRN #60 ampul.neb 03/09/19 [Rx] Levofloxacin [Levaquin] 750 mg PO DAILY #3 tablet 03/09/19 [Rx] predniSONE [PredniSONE] 40 mg PO DAILY #10 tablet 03/09/19 [Rx] Allergies/Adverse Reactions: Allergy/AdvReac Type Severity Reaction Status Date / Time AMBIKA Inhibitors Allergy See Verified 07/12/15 08:01 Comments acetaminophen [From Vicodin] Allergy Itching Verified 09/26/15 07:26 codeine Allergy Hives Verified 07/12/15 07:46 Diclofenac Allergy Itching Verified 09/26/15 07:26 hydrocodone [From Vicodin] Allergy Itching Verified 07/12/15 08:01 misoprostol Allergy See Verified 07/12/15 08:01 Comments ofloxacin Allergy REDNESS Verified 09/26/15 07:26 SWELLING Penicillins Allergy SWELLING Verified 09/26/15 07:26 Quinolones Allergy See Verified 07/12/15 08:01 Comments Sulfa (Sulfonamide Allergy Itching Verified 07/12/15 07:46 Antibiotics) trimethoprim Allergy See Verified 07/12/15 08:01 Comments metronidazole [From Flagyl] AdvReac burning Verified 09/26/15 07:26 sensation via iv Date of admission: 03/08/19 15:36 Primary care physician: Quentin Rosen MD Consults: 03/07/19 07:54 Consult to Nurse Navigator [CONS] Routine Comment: COPD - Constitutional Vitals: Temp Pulse Resp BP Pulse Ox 97.9 F 70 18 148/76 94 03/09/19 07:13 03/09/19 07:13 03/09/19 07:52 03/09/19 07:13 03/09/19 07:52 General appearance: Present: A&O X 3, no acute distress, answers questions appropriately Exam: Gen: Alert, awake, Oriented to time,place and person Chest: Diminished breath sounds B/L, Moderate wheezing, No crackles, No rales Heart: S1S2+ RRR No murmurs Abd: Soft, NT, BS +, No organomegaly Ext: trace edema, pulses are palpable, No calf tenderness Neuro : Benign findings Skin: No rash. - Patient Status Disposition: Home, Self-Care Condition: Good - Discharge Instructions Follow Up With: Quentin Rosen MD [Primary Care Provider] - 03/15/19 10:15 am () - Diet and Activity Activity: increase activity as tolerated, wear oxygen at all times (3 lit) Diet: low salt diet
--- NOTE | 2019-03-09 21:57 | Electrocardiograph Report ---
[place] [id number] Test Date: 2019-03-06 Pat Name: Nic Winchester Department: [id number] Room: 3B16 Gender: M Clothing Sorter: : 1955 Requested By: Guzman Centeno Order Number: [id number] Reading MD: Leigh Pritchett Measurements Intervals [place] Rate: 95 P: 77 [place]: 153 QRS: 91 QRSD: 99 T: 45 QT: 342 QTc: 430 Interpretive Statements Sinus rhythm Right axis deviation Borderline T abnormalities, lateral leads Electronically Signed On 03-09-2019 21:56:09 EDT by Leigh Pritchett
== END 2019-03-09 10:59 | disposition home or self-care (01) | DRG 191 ==
LOC: EMEROOARM 09:55 → 3BNU 09:55 → SUATTDRO 13:10 → 3BNU 14:05
PROVIDERS: ADMIT Internal Medicine; ATTEND Family Medicine